=== PATIENT | female | born 1995 | race Caucasian/White ===

== ENCOUNTER 2025-09-23 14:46 | Emergency (ER) | payer OTHER, SELFPAY ==
[2025-09-23 15:12] VITALS: BP 121/73; PULSE 125; RESP 16; TEMP 37.2; O2SAT 98
--- NOTE | 2025-09-23 15:27 | ED_ITS ---
HPI - Nausea/Vomiting/Diarrhea General Chief complaint: Nausea/Vomiting/Diarrhea Stated complaint: Flu Symptoms patient presents to the [facility] with complaints of nausea, vomiting, diarrhea, fever, chills, body aches that began yesterday. Significantly worse today patient reports she feels he hydrated and dry would like IV fluids and IV Zofran. Patient does report she is currently about 4 weeks and has had some significant nausea vomiting on occasion with this and is trying not to take Zofran. Some improvement with symptoms taken Zofran yesterday. Denies abdominal pain, vaginal bleeding. Related Data Allergies Allergy/AdvReac Type Severity Reaction Status Date / Time No Known Allergies Allergy Verified 09/23/25 15:11 Review of Systems Constitutional: Constitutional: Reports as per HPI, Reports chills, Reports fatigue, Reports fever(s) and Reports weakness Eyes: Eyes: Reports no additional eye complaints ENT: Reports as per HPI, Denies vertigo, Denies dizziness, Denies nasal congestion and Denies sore throat Cardiovascular: Cardiovascular: Reports no additional cardiovascular complaints Respiratory: Respiratory: Reports as per HPI, Denies chest congestion, Denies cough, Denies dyspnea and Denies wheezing Gastrointestinal: Gastrointestinal: Reports as per HPI, Denies abdominal pain, Denies bloating, Denies constipation, Denies heartburn, Reports diarrhea, Reports nausea and Reports vomiting Genitourinary: Genitourinary: Reports as per HPI, Denies abnormal vaginal bleeding, Denies hematuria, Denies nocturia, Denies genital lesions, Denies dysuria, Denies pelvic pain, Denies flank pain, Denies urinary incontinence and Denies vaginal discharge Musculoskeletal: Musculoskeletal: Reports as per HPI, Denies back pain and Denies myalgias Integumentary/Breasts: Skin/Breast: Reports as per HPI, Denies erythema, Denies rash and Denies skin ulcer Neurologic: Reports as per HPI, Denies vertigo, Denies dizziness and Reports weakness Psychiatric: Psychiatric: Reports no additional psychiatric complaints Endocrine: Endocrine: Reports no additional endocrine complaints Hematologic/Lymphatic: Hematologic/Lymphatic: Reports no additional hematologic/lymphatic complaints Allergic/Immunologic: Allergic/Immunologic: Reports no additional allergic/immunologic complaints Exam Const: General: no acute distress and ill appearing Nutritional Appearance: well nourished Orientation/consciousness: patient oriented x3 Limitations: no limitations Resp: Effort & Inspection: normal respiratory effort Auscultation: clear to auscultation bilaterally Cardio: Rate: tachycardic Rhythm: regular rhythm GI: Inspection: non-distended GI Palp: Yes Soft to palpation, No Tenderness to palpation present (GI), No Guarding due to palpation present (GI) and No Rigid due to palpation : General: Yes bladder normal to palpation and Yes no CVA tenderness Skin: General skin exam: pallor Rashes: no rashes Wounds: no wounds Neuro: General: patient oriented x3 Speech: normal speech Gait exam (Neuro): Normal gait present Psych: Mental Status: mental status grossly normal Affect: normal affect Attitude: cooperative Course Course Level of Care: Express Care Visit Vital Signs Vital signs: Vital Signs Temperature 99 F 09/23/25 15:12 Pulse Rate 125 H 09/23/25 15:12 Respiratory Rate 16 09/23/25 15:12 Blood Pressure 121/73 09/23/25 15:12 Pulse Oximetry 98 09/23/25 15:12 Temperature 99 F 09/23/25 15:12 Pulse Rate 125 H 09/23/25 15:12 Respiratory Rate 16 09/23/25 15:12 Blood Pressure 121/73 09/23/25 15:12 Pulse Oximetry 98 09/23/25 15:12 [facility] Narrative Medical decision making narrative: Patient negative for influenza a and COVID. Given patient's symptoms and elevated heart rate recommended patient be evaluated in the emergency room with labs and potential for IV fluids and IV medications due to symptoms. Patient will go to [facility]. report given to Cherelle Roldan at [facility]. Differential Diagnosis Differential Diagnosis: Gastroenteritis, abdominal pain, pyelonephritis, urinary tract infect Medical Records I have reviewed the following patient records and this information was taken into consideration when formulating the assessment and plan.: previous labs, previous ER visits, previous hospitalizations and previous clinic visits Lab Data [facility] Lab Attestation statement: I personally reviewed the patient's lab results. Labs: Lab Results 09/23/25 Range/Units 15:31 POC Influenza A Ag Negative (Negative) POC Influenza B Ag Negative (Negative) POC SARS CoV-2 Ag Negative (Negative) Discharge Plan Discharge Clinical Impression: Vomiting and diarrhea Patient Disposition: Acute Care Hospital Condition: Guarded Prognosis Patient Language: Nepalese Follow-up/Referrals: PHYSICIAN,TENT FINISHER [Primary Care Provider, Internal Medicine] Time of Disposition: 15:38
[2025-09-23 15:33] LABS: EDCOVIDSCREEN Negative (Negative); EDINFLUASCREEN Negative (Negative); EDINFLUBSCREEN Negative (Negative)
== END 2025-09-23 15:40 | disposition short-term general hospital (02) ==
PROVIDERS: Emergency Provider Nurse Practitioner Family
DX: O21.9 Vomiting of pregnancy, unspecified (principal); O99.611 Diseases of the digestive system complicating pregnancy, first trimester; R19.7 Diarrhea, unspecified; Z3A.01 Less than 8 weeks gestation of pregnancy; Z20.822 Contact with and (suspected) exposure to COVID-19
CPT/HCPCS: 87426; 87804; 99202; G0463

== ENCOUNTER 2025-09-23 15:53 | Emergency (ER) | payer OTHER, SELFPAY ==
--- OUTSIDE RECORDS SUMMARY | 2024-11-06 03:18 | XMS_ITS | Continuity of Care Document ---
Author Organization [facility] Address [address] [place] [address] Phone Care Team Providers Care Synthetic Plasterer Name Role Phone Records, Medical Unavailable Unavailable Allergies, Adverse Reactions, Alerts Substance Reaction Status Criticality No Known Allergies Active No Inform ation Medications Medication Instructions Dosage Effective Dates (start - stop) Status Comments ondansetron [address] 1 tablet by translingual route every [address] on top of the tongue where they will dissolve, then swallow for hyperemesis gravidarum 1 tablet - Active ZOLOFT (unknown strength) take 1 tablet by oral route every day Not Available - Active HYDROXYZINE HCL (unknown strength) Not Available - Active Advance Directives Directive Yes / No Effective Date File Name No Information Encounters Encounter Description Practice Location Reason(s) For Visit Diagnoses Date Provider [facility], [address] [place] [address], [facility], tel:[phone] [facility] No Information Records Medical. [address], [place], [address], [place]. tel:[phone] [facility], [address] [place] [address], [address], [place] tel:[phone] [facility] *ears (chief complaint) Tinnitus, left Reid Grimaldo. [address], [place], [place], [id number], [place]. tel:[phone] [facility], [address] [place] [address], [address], tel:[phone] [facility] Tinnitus, bilateral Maya Grimadlo. [address], [place], [place], [id number]. tel:[phone] [facility], [address] [facility], [place], [address], tel:[phone] [facility] No Information Stanislav Strongnicnicolle. [address], [place], [place], [id number], [place]. tel:[phone] [facility], [address] [facility], [place], [address], [place] tel:[phone] [facility] *New OB (chief complaint) care in first trimesterAnxiety and depressionDepression, unspecifiedNausea/vomit ing in pregnancyIrritable bowel syndrome with constipationEncounter for screening for other disorder Stanislav Walters. [address], [place], [place], [id number], [place]. tel:[phone] [facility], [address] [place] [address], [facility], [place] tel:[phone] [facility] * Rt ft plantar pain (chief complaint) Plantar fasciitis of right footBilateral foot painPain in left footPronation deformity of both feetOther acquired deformities of left footGastrocnemius equinus of left lower extremityBody mass index (BMI) 24.0-24.9, adult Deepti Cid. [address] [place], [id number], . tel:[phone] [facility], [address] [place] [address], [address], [place] tel:[phone] [facility] * claw fingers (chief complaint) ParesthesiasBilateral hand painPain in left handBody mass index (BMI) 24.0-24.9, adult Jase Tan. [address], [place], [place], [id number], . tel:[phone] Family History Family Member Type Diagnosis Age At Onset No Information Payers Payer name Insurance type Covered libertarian ID Authoriza tion(s) [facility] Claims [id number] Social History Type Description Quantity Date Captured Comments Sex Female Smoking Status No Information Chief Complaint And Reason For Visit No Information Plan Of Treatment Date Type Action Status Goal PHQ9/Depr/Suicide Rsk Assess ment. Due on due Goal COVID-19 Vaccine. Due on Oct due Goal FIT. Due on due Goal Tdap. Due on due Goal Hepatitis C screening. Due o n due Goal HPV. Due on due Goal Pap/HPV testing. Due on due Goal Influenza vaccine. Due on due Goal Unhealthy drug use screening . Due on due Goal FIT-DNA. Due on due Goal Colonoscopy. Due on 025 due Goal FOBT. Due on due Goal Diabetes screening. Due on due Goal Td vaccine. Due on 25 due Goal COVID-19 Vaccine. Due on Jun due Goal Td vaccine. Due on 24 due Goal Diabetes screening. Due on due Goal Tdap. Due on due Goal FIT. Due on due Goal HPV. Due on due Goal FIT-DNA. Due on due Goal Hepatitis C screening. Due o n due Goal Unhealthy drug use screening . Due on due Goal FOBT. Due on due Goal PHQ9/Depr/Suicide Rsk Assess ment. Due on due Goal Pap/HPV testing. Due on due Goal Colonoscopy. Due on due Goal Influenza vaccine. Due on due Goal PHQ9/Depr/Suicide Rsk Assess ment. Due on due Goal HPV. Due on due Goal FOBT. Due on due Goal Influenza vaccine. Due on due Goal Pap/HPV testing. Due on due Goal Unhealthy drug use screening . Due on due Goal Td vaccine. Due on due Goal COVID-19 Vaccine. Due on Jun due Goal Hepatitis C screening. Due o n due Goal Diabetes screening. Due on S due Goal Colonoscopy. Due on due Goal FIT. Due on due Goal FIT-DNA. Due on due Goal Tdap. Due on due Goal Unhealthy drug use screening . Due on due Goal Colonoscopy. Due on due Goal Tdap. Due on due Goal HPV. Due on due Goal Influenza vaccine. Due on due Goal FIT-DNA. Due on due Goal FIT. Due on due Goal Td vaccine. Due on due Goal FOBT. Due on due Goal Pap/HPV testing. Due on due Goal COVID-19 Vaccine. Due on May due Goal Diabetes screening. Due on A due Goal Hepatitis C screening. Due o n due Goal Diabetes screening. Due on A due Goal Tdap. Due on due Goal FOBT. Due on due Goal HPV. Due on due Goal Influenza vaccine. Due on due Goal Unhealthy drug use screening . Due on due Goal Td vaccine. Due on due Goal FIT-DNA. Due on due Goal Pap/HPV testing. Due on due Goal Hepatitis C screening. Due o n due Goal FIT. Due on due Goal COVID-19 Vaccine. Due on May due Goal Colonoscopy. Due on 024 due History Of Present Illness Encounter Date Complaint History Of Prese nt Illness *ears 29yo here for ev aluation of tinnitus. Audiogram done at [facility] today. Tinnitus present for 6-7 months. During the day both ears, worse on left side at night. Left ear pain for the pat 3 days. No ear drainage. No history of loud noise exposure, [place]. No history of ear infections. T&A in 1998. mk Paroxysmal tinnitus in the past. Now it seems like the left side rings every night. Family history is positive for getting hearing aids earlier than is normal. *New OB Patient is here for a new OB appointment. She is around 6 weeks and went to the [facility] ER 06/02 for stomach pain. 28yo at 6.4wga by LMP of 04/24 MIREILLE 5/1LMP: 04/24# of weeks: 6.4 weeksThis si her first pregnancyHPI: ER visit: Intense lower L abdominal pain, went in and a ovarian cyst was found. Left side cramping still present, Tylenol has been used to manage, passed out this morning. Developed elevated heart rate, monitoring by [facility]. PMH: Anxiety + Depression, treated medically. IBSExam: Transvaginal US: Measures 6.6, FHR: ?? MIREILLE: 5/1Meds: 50mg Zoloft, stopped Wellbutrin and linzess day found out she was . vitamins. * Rt ft plantar pain B/L plantar fascitis right is worse than left and it has been about 2 months or so just gets bad when active on feet which her job requires her to be on her feet she is here for evaluation and treatment. She has tried the RICE method no relief not with ibuprofen as well * claw fingers See attached EMG /NCS BUE data and report in EHR Categories/Procedures/Neurologic. Instructions Date Instruction Additional Infor agustín Behavioral managemen t strategies. Recommend diversion techniques as well. Ear protection for loud sounds. Consider pharmacotherapy if it becomes intolerable. F/U change in otologic symptoms. Related to Tinnitus, left Follow-up with Dr. Vásquez. Relat ed to Paresthesias Assessments Type Assessment Date No Information
--- OUTSIDE RECORDS SUMMARY | 2025-09-23 15:55 | XMS_ITS | Clinical Summary ---
Author Organization [facility] Address [address] [place] [address] Care Team Providers Care Manager Sales And Marketing Name Role Phone Divya Vaughan Melo DO Primary Care Provider [phone] Allergies No known active allergies Medications sertraline (ZOLOFT) 100 MG tablet Take 1 tablet (100 mg total) by mouth. 07/23/20 24 Active FEROSUL 325 (65 Fe) MG tablet 11/18/19 25 Active esomeprazole (NEXIUM) 40 MG capsule Take 1 capsule (40 mg total) by mouth every 12 (twelve) hours. 12/31/19 25 Active WELLBUTRIN XL 150 MG 24 hr tablet Take 1 tablet (150 mg total) by mouth. 10/31/19 25 Active Cqglxstz-Vtk-Fe-FA ( 1 + IRON OR) Active oxyCODONE immediate release (ROXICODONE) 5 MG immediate release tabletIndications: Acute Pain < 7 Day Supply Take 1 tablet (5 mg total) by mouth every 4 (four) hours as needed. Indications: Acute Pain < 7 Day Supply 20 tablet 01/19/20 25 Active Additional Information Patient not taking.Reported on 08/13/2025 docusate sodium (COLACE) 100 MG capsule Take 1 capsule (100 mg total) by mouth 2 (two) times daily. 03/25/20 25 Active ondansetron (ZOFRAN-ODT) 4 MG disintegrating tablet 03/25/20 25 Active linaCLOtide (LINZESS) 72 MCG capsuleIndications :Irritable bowel syndrome with constipation Take 1 capsule (72 mcg total) by mouth every morning before breakfast. 30 capsule 2 08/13/20 25 Active Active Problems Problem Noted Date Diagnosed Date section wound complication 01/18/2025 Tachycardia 01/12/2025 Anxiety 01/12/2025 Body dysmorphic disorder 01/12/2025 Irritable bowel syndrome 01/12/2025 Seasonal allergic rhinitis 01/12/2025 Diastasis recti 11/07/2024 Constipation, unspecified constipation type 11/30 Herpes simplex type 1 infection 11/07/2016 Resolved Problems Problem Noted Date Diagnosed Date Resolved Date Rupture of membranes with delay of delivery 01/15/2025 01/18/2025 37 weeks gestation of 01/12/2025 01/18/2025 Hyperemesis gravidarum 01/12/202501/18 01/12/2025 01/18/2025 related hip pain, antepartum, third trimester 11/06/2024 01/18/2025 Lower abdominal pain 12/18/2018 025 Encounters Date Type Department Care Team Description 09/15/2025 MyChart Message Enc [facility] Family & Internal Medicine [address] [phone] Divya Vaughan, Gi 09/15/2025 Telephone [facility] [address] [phone] Divya Vaughan, DO Referral 09/15/2025 Telephone [facility] - [address], [address] [place] [address] Steven Contreras PA-C Returned Call 08/13/2025 8:40 AM MANAGER MONITORING Office Visit [facility] [address] [phone] Divya Vaughan, DO New Patient (Pt has history of IBS and is wanting to get back on IBS relgm walker she is currently and was wondering if it would be safe ) 08/13/2025 Telephone [facility] Family [facility] Internal Medicine [address] [place] [phone] Divya Vaughan, Prior Authorization ([facility]) 08/13/2025 Travel from Last 3 Months Immunizations Immunization Administration Dates Next Due Tdap (Historical Only-select from magnify glass) 02/27/2019 Family History Medical History Relation Comments Colon Cancer Father stage 4 Breast Cancer Paternal Aunt Relation Status Comments Father Paternal Aunt Social History Tobacco Use Types Packs/Day Years Used Date Smoking Tobacco: Never Smokeless Tobacco: Never Tobacco Cessation:Counseling Given: No Alcohol Use Standard Drinks/Week Comments Not Currently 0 (1 standard drink = 0.6 oz pur e alcohol) B1300 Health Literacy Answer Date Recor ded How often do you need to hav e someone help you when you read instructions, pamphlets, or other written material from your doctor or pharmacy? Never 01/15/2025 [facility] Utilities Answer Date Recorded In the past 12 months has e Sapiens, oil, or water [employer] threatened to shut off services in your home? No 01/15/2025 Humiliation, Afraid, Rape, and Kick questionnair e Answer Date Recorded Within the last year, have y ou been afraid of your partner or ex-partner? No 01/15/2025 Within the last year, have y ou been humiliated or emotionally abused in other ways by your partner or ex-partner? No Within the last year, have y ou been kicked, hit, slapped, or otherwise physically hurt by your partner or ex-partner? No 01/15/2025 Within the last year, have y ou been raped or forced to have any kind of sexual activity by your partner or ex-partner? No 01/15/2025 Social Connection and Isolation Panel Answer Date Recorded In a typical week, how many times do you talk on the phone with family, friends, or neighbors? More than three times a week 01/15/2025 How often do you get togethe r with friends or relatives? More than three times a week 01/15/2025 How often do you attend [facility] or gnosticist services? More than 4 times per year 01/15/2025 Do you belong to any clubs o r organizations such as taoism groups, unions, fraternal or athletic groups, or school groups? No 01/15/2025 How often do you attend meet ings of the clubs or organizations you belong to? Never 01/15/2025 Are you , , di vorced, , never , or living with a partner? 01/15/2025 AUDIT-C Answer Date Recorded Q1: How often do you have a drink containing alcohol? Never 01/15/2025 Q2: How many drinks containi ng alcohol do you have on a typical day when you are drinking? Patient does not drink Q3: How often do you have si x or more drinks on one occasion? Never 01/15/2025 Overall Financial Resource Strain (CARDIA) Answe r Date Recorded How hard is it for you to pa y for the very basics like food, housing, medical care, and heating? Not hard at all 01/15/2025 PHQ-2 Answer Date Recorded Patient Health Questionnaire-2 Score 0 01/15/2025 [facility] - Occupational Stress Questionnaire Answer Date Recorded Do you feel stress - tense, restless, nervous, or anxious, or unable to sleep at night because your mind is troubled all the time - these days? Not at all 01/15/2025 Exercise Vital Sign Answer Date Recorde d On average, how many days pe r week do you engage in moderate to strenuous exercise (like a brisk walk)? 3 days 01/15/2025 On average, how many minutes do you engage in exercise at this level? 30 min 01/15/2025 Hunger Vital Sign Answer Date Recorded Within the past 12 months, y ou worried that your food would run out before you got the money to buy more. Never true 01/16/20 25 Within the past 12 months, t he food you bought just didn't last and you didn't have money to get more. Never true 01/15/2025 PRAPARE - Transportation Answer Date Re corded In the past 12 months, has l ack of transportation kept you from medical appointments or from getting medications? No 12/30 In the past 12 months, has l ack of transportation kept you from meetings, work, or from getting things needed for daily living? No 01/15/2025 Housing Stability Vital Sign Answer Ken e Recorded In the last 12 months, was t here a time when you were not able to pay the mortgage or rent on time? No 01/15/2025 In the past 12 months, how m any times have you moved where you were living? 1 01/15/2025 At any time in the past 12 [facility], were you homeless or living in a correction (including now)? No 01/15/2025 Depression Answer Date Recor ded Last EPDS Total Score 2 01/18/2025 Last EPDS Self Harm Result Sometimes 01/18 Comments No Sex and Gender Information Value Date Recorded Sex Assigned at Female 01/15/2025 5:38 AM CDT Legal Sex Female 9:35 PM MANAGER MONITORING Gender Identity Female 01/15/2025 5:38 AM CDT Sexual Orientation Straight 01/15/2025 5: 38 AM CDT Last Filed Vital Signs Vital Sign Reading Time Taken Comments Blood Pressure 94/86 08/13/2025 8:48 AM MANAGER MONITORING Pulse 81 08/13/2025 8:48 AM MANAGER MONITORING Temperature 37 C (98.6 F) 08/13/2025 8:48 AM MANAGER MONITORING Respiratory Rate 16 08/13/2025 8:48 AM MANAGER MONITORING Oxygen Saturation 98% 08/13/2025 8:48 AM MANAGER MONITORING Inhaled Oxygen Concentration - - Weight 59.9 kg (132 lb) 08/13/2025 8:48 AM MANAGER MONITORING Height 157.5 cm (5' 2) 08/13/2025 8:48 AM MANAGER MONITORING Body Mass Index 24.14 08/13/2025 8:48 AM MANAGER MONITORING Plan of Treatment Health Maintenance Due Date Last Done Comments HPV Vaccines (2 - 2-dose series) 10/01/2008 03/31/2008 Cervical Cancer Screening Pap Smear (Age 30 to 64) Every 3 Years 11/14/2022 11/14/2019, 07/30/2017 Cervical Cancer Screening Pap with HPV Testing (Age 30 to 64) Every 5 Years 2023 Cervical Cancer Screening with HPV 2023 COVID-19 Vaccine ( season) 2025 12/12/2021, 10/08/2020, 09/21/2020 Influenza Adult (#1) 2025 07/12/2022, 01/13/2022, 07/12/2015, Additional history exists Annual Physical 08/13/2026 08/13/2025 DTaP, Tdap and Td Vaccines (7 - Td or Tdap) 01/14/2032 01/13/2022, 02/27/2019, 03/31/2008, Additional history exists Hepatitis B Vaccines Completed 06/09/2019, 04/06/1995, 11/24/1994, Additional history exists Meningococcal Vaccine Aged Out 01/13/2022 No chrsi minerva eligible based on patient's age to complete this topic Hepatitis A Vaccines Aged Out 09/06/2022, 01/14/20 22 No longer eligible based on patient's age to complete this topic Hepatitis C Completed 07/07/2024 PHQ-2 (Physician [place]) Completed 01/15/2025 Meningococcal B Vaccine Aged Out No l onger eligible based on patient's age to complete this topic Pneumococcal Vaccine: Pediatrics (0 to 5 Years) and At-Risk Patients (6 to 49 Years) Aged Out No longer eligible based on patient's age to complete this topic RSV Immunizations Under 20 Months Aged Out No longer eligible based on patient's age to complete this topic Procedures Procedure Name Priority Date/Time Associated Diagnosis Comments HEPATITIS C ANTIBODY Routine 07/07/2024 OUTSIDE CYTOPATH CERV/VAG INTERPRET (PAP) (SCAN ORDER) Routine 07/30/2017 12:00 AM CDT from Last 3 Months or Most Recently Relevant to Health Maintenance Results * HEPATITIS C ANTIBODY (07/07/2024) HEPATITIS C AB Non-Reacti ve us Default History Genericprovider LABORATORY Final Result * PAP SMEAR (07/30/2017 12:00 AM CDT) 07/30/2017 us Documents Scanned SCANNING Final Result [facility] from Last 3 Months or Most Recently Relevant to Health Maintenance Insurance Advance Directives * Full Code (Latest Code Status on File) Date Activated Date Inactivated Comments 01/16/2025 3:00 PM 01/18/2025 2:30 PM * Full Code Date Activated Date Inactivated Comments 01/15/2025 5:16 AM 01/16/2025 3:00 PM Care Teams Manager Sales And Marketing Relationship Specialty Start Date End Date Divya Vaughan DO [address] [place] [id number] PCP - General FAMILY PRACTICE 08/13/25
--- OUTSIDE RECORDS SUMMARY | 2025-09-23 15:55 | XMS_ITS | Data Portability ---
Author Organization [facility], [facility] Address [address] [place] [address] Assessment Encounter Date Assessment Date Assessment LastModified by Organization Details LastModified Time 04/21/2025 04/21/2025 Total time spent caring for the patient today was 60 minutes. This includes time spent before the visit reviewing the chart, time spent during the visit, and time spent after the visit on documentation and prescribing medication. Clinical Impression: onset of recurrent Major Depressive Disorder (MDD) and Generalized Anxiety Disorder (ALLIE) with mood instability, chronic anxiety, nightmares, and resurfaced self-harm urges. Current symptoms are moderately impairing and worsened by psychosocial stressors (adjustment to motherhood, limited privacy, transition). Diagnoses: - Major Depressive Disorder, Recurrent, Moderate, with peripartum onset -Generalized Anxiety Disorder The patient consented to the following treatment plan: Not available 04/21/2025 13:56:06 05/19/2025 05/19/2025 MDM: 1 or more chronic illnesses with exacerbation, progression, or treatment side effects. Prescription drug management. Clinical Impression: Yue is currently experiencing partial improvement in depressive and mood instability symptoms. Her recent psychosocial stressor h er father s cancer diagnosis h as contributed to situational stress and sadness but has not precipitated acute mood decompensation. She demonstrates good insight, adherence to her current medication regimen (Wellbutrin and Zoloft), and stability in sleep, appetite, energy, and social functioning. No suicidal or homicidal ideation is reported. Lamictal initiation is deferred at this time. Psychosocial support is being enhanced through couples counseling, with individual therapy planned when feasible. There have been no indications of elevated suicide risk or self-harming behaviors since the previous evaluation. The patient consented to the following treatment plan: Not available 05/19/2025 12:54:13 Plan of Treatment Reminders Order Date Submit Date Provider Last Modified By Organization Details Last Modified Time Details Appointments TELEMED CAPACITY ANALYST EST 2024 04:15P M RAQUEL Gil Not available Not available Not available CAPACITY ANALYST SONO 15 2025 02:00P M [facility] [place] Not available Not available Not available CAPACITY ANALYST EST 2025 02:30P M Amos Sanz MD Not available Not available Not available Lab CBC w/ auto diff 2024 025 [facility], [address] [facility] [facility], [place], [address], 01/28/2025 04:37:22 urinaly sis, dipstic k 2024 025 dylan [facility], [address] [place], [address], 01/06/2025 17:59:10 Referral clinica l therapi st referra l 2024 025 [email or web address] [facility], [address] [facility], [place], [address], 06/19/2025 12:31:47 Procedures None recorde d. Surgeries None recorde d. Imaging None recorde d. Medication Orders lamotri gine 25 mg tablet 2024 025 [email or web address] [id number], [address] [facility], [place], [place], [id number], 04/21/2025 14:06:50 Patient TargetsNo targets recorded. Patient Instructions Encounter Date Encounter Id Patient Instructions Last Modified By Organization Details Last Modified Time 02/25/2025 [id number] depression after childbirth: care instructions dylan Not available 03/02/2025 22:03:37 Care at Home With Your Baby: Care Instructions [email or web address] Not available 03/02/2025 22:03:37 control after counseling dylan Not available 03/02/2025 22:03:37 04/21/2025 [id number] ALLIE-7 anxiety scale* Not available 05/13/2025 10:59:39 Patient Health Questionnaire-9* Not available 05/13/2025 10:59:40 Safety: -The patient denies SI, SIB, psychosis, and cortney -Denies access to firearms or other lethal means -The patient appears future-oriented and, based on the assessment, does not exhibit signs of significant psychosis, cortney, or depression that would warrant a higher level of care at this time. -The patient was advised to seek emergency services if experiencing any thoughts of self-harm, harm to others, or a medical emergency. Follow-up: -Start Lamotrigine 25 mg daily, reassess in 2 weeks- may increase to 50 mg at that time -Monitor for side effects (pool. rash); titrate per schedule -Referral to local therapist ([facility] ra[facility] if possible) -Schedule a follow-up appointment in 3 weeks to evaluate for medication effectiveness Not available 04/21/2025 14:19:20 Lamotrigine -Lamotrigine passes into breast milk in low amounts, and most infants have no side effects. Rare cases of breathing issues and anemia have been reported. -Watch for rash, sleepiness, poor sucking, or breathing problems, and contact a provider if symptoms appear. -Advised of the risk of possibly fatal rash (i.e., Pham-David Syndrome) and agrees to stop medication, and seek medical attention immediately if any rash or rash or blistering of the mucosal surfaces develop, given the potential for lethality and requirement for evaluation by a physician to rule this out. -Further advised that the risk of this reaction increases if proper dose titration is not adhered to carefully and that not taking this medication for 2 days or more will require a retitration process. Side effects include: - Feeling dizzy, sleepy, tired, or weak. -Constipation, diarrhea, stomach pain, upset stomach, throwing up, or decreased appetite. -Shakiness. -Trouble sleeping. -Nose or throat irritation. -Weight loss. -Dry mouth. -Back pain. Report any side effects that do not go away or are bothersome Do not stop taking this drug all of a sudden. You may have a greater risk of side effects Not available 04/21/2025 14:06:23 05/19/2025 [id number] Safety: -The patient denies SI, SIB, psychosis, and cortney -Denies access to firearms or other lethal means -The patient appears future-oriented and, based on the assessment, does not exhibit signs of significant psychosis, cortney, or depression that would warrant a higher level of care at this time. -The patient was advised to seek emergency services if experiencing any thoughts of self-harm, harm to others, or a medical emergency. Follow up -in 1 month (June 16, 2025) via Telemed appointment at 11:00 AM Not available 05/19/2025 12:53:05 - Provided resources for online support groups Not available 05/19/2025 14:53:07 Reason for Referral Clinical Therapist Referral for Moderate recurrent major depression Referring Physician: Gayatri Galvez, COMPLAINT INVESTIGATIONS OFFICER, Encounter Date: 04/21/2025 Results Created Date Observation Date Name Description Value Unit Range Abnormal Flag Note LastModifiedBy Organization Detail LastModifiedTime 01/03/20 25 01/05/2025 STREP TOCOC CUS, GROUP B CULTU RE streptococcu s, group B culture SEE NOTE STREP TOCOC CUS, GROUP B CULTU RE Micro Numbe r: [id number] Test Statu s: Final Speci men Sourc e: Vagin al/an orect al Speci men Quali ty: Adequ ate Resul t: No group B Strep tococ cus isola cecelia Note per CDC guide lines optim al recov heriberto is achie mario by swabb ing both the lower vagin a and rectu m (thro ugh the anal sphin cter) . Not Available [employer] [facility] [address] , [place], [address], 01/05/2025 08:42:49 01/07/20 25 01/08/2025 CULTU RE, URINE , ROUTI NE culture, urine, routine SEE NOTE CULTU RE, URINE , ROUTI NE Micro Numbe r: [id number] Test Statu s: Final Speci men Sourc e: Urine Speci men Quali ty: Adequ ate Resul t: No Growt h Not Available [facility] [address] , [place], [address], 01/09/2025 00:26:56 01/07/2001/06/2025 urina lysis , dipst ick Leukocytes Small Not Available [address], [place], [address], 01/06/2025 17:17:16 01/07/2001/06/2025 urina lysis , dipst ick Nitrite negati ve Not Available [address], [place], [address], 01/06/2025 17:17:16 01/07/2001/06/2025 urina lysis , dipst ick Urobilinogen 1 Not Available [address], [place], [address], 01/06/2025 17:17:16 01/07/2001/06/2025 urina lysis , dipst ick Protein Negati ve Not Available [address], [place], [address], 01/06/2025 17:17:16 01/07/20 25 01/06/2025 urina lysis , dipst ick pH 6.0 Not Available [address], [place], [address], 01/06/2025 17:17:16 01/07/2001/06/2025 urina lysis , dipst ick Blood Negati ve Not Available [address], [place], [address], 01/06/2025 17:17:16 01/07/20 25 01/06/2025 urina lysis , dipst ick Specific [place] 1.005 Not Available [facility] [address] [facility], [place], [address], 01/06/2025 17:17:16 01/07/20 25 01/06/2025 urina lysis , dipst ick Ketone Small Not Available [address], [place], [address], 01/06/2025 17:17:16 01/07/20 25 01/06/2025 urina lysis , dipst ick Bilirubin Negati ve Not Available [address], [place], [address], 01/06/2025 17:17:16 01/07/20 25 01/06/2025 urina lysis , dipst ick Glucose Negati ve Not Available [address], [place], [address], 01/06/2025 17:17:16 01/07/20 25 01/06/2025 urina lysis , dipst ick Appearance Clear Not Available [address], [place], [address], 01/06/2025 17:17:16 01/07/20 25 01/06/2025 urina lysis , dipst ick Color Yellow Not Available [address], [place], [address], 01/06/2025 17:17:16 01/17/2001/16/2025 CBC WITH DIFF WBC 23.23 x10'3 /uL 4.5-11 .0 high Not Available [facility] (Lab) [address] [facility], [place], [address], 01/16/2025 20:34:05 01/17/20 25 01/16/2025 CBC WITH DIFF RBC 3.14 x10'6 /uL 4.20-5 .40 low Not Available [facility] (Lab) [address], [place], [address], 01/16/2025 20:34:05 01/17/20 25 01/16/2025 CBC WITH DIFF hemoglobin 8.5 g/dL 12.0-1 6.0 low Not Available [facility] (Lab) [address], [place], [address], 01/16/2025 20:34:05 01/17/20 25 01/16/2025 CBC WITH DIFF hematocrit 26.8 % 38.0-4 8.0 low Not Available [facility] (Lab) [address], [place], [address], 01/16/2025 20:34:05 01/17/20 25 01/16/2025 CBC WITH DIFF MCV 85.4 fL 81.0-9 9.0 Not Available [facility] (Lab) [address], [place], [address], 01/16/2025 20:34:05 01/17/20 25 01/16/2025 CBC WITH DIFF MCH 27.1 pg 27.0-3 1.0 Not Available [facility] (Lab) [address], [place], [address], 01/16/2025 20:34:05 01/17/20 25 01/16/2025 CBC WITH DIFF MCHC 31.7 g/dL 32.0-3 6.0 low Not Available [facility] (Lab) [address], [place], [address], 01/16/2025 20:34:05 01/17/20 25 01/16/2025 CBC WITH DIFF RDW 15.1 % 11.5-1 4.5 high Not Available [facility] (Lab) [place], [address], 01/16/2025 20:34:05 01/17/20 25 01/16/2025 CBC WITH DIFF platelet count 209 x10'3 /uL 130-40 0 Not Available [facility] (Lab) [address], [place], [address], 01/16/2025 20:34:05 01/17/20 25 01/16/2025 CBC WITH DIFF MPV 10.7 fL 9.3-12 .2 Not Available [facility] (Lab) [address], [place], [address], 01/16/2025 20:34:05 01/17/20 25 01/16/2025 CBC WITH DIFF diff type MANUAL DIFFER ENTIAL Not Available [facility] (Lab) [address], [place], [address], 01/16/2025 20:34:05 01/17/20 25 01/16/2025 CBC WITH DIFF seg neutrophils 94 % Not Available [facility] (Lab) [place], [address], 01/16/2025 20:34:05 01/17/20 25 01/16/2025 CBC WITH DIFF lymphocytes 2 % Not Available [facility] (Lab) [place], [address], 01/16/2025 20:34:05 01/17/20 25 01/16/2025 CBC WITH DIFF monocytes 4 % Not Available [facility] (Lab) [place], [address], 01/16/2025 20:34:05 01/17/20 25 01/16/2025 CBC WITH DIFF abs neutrophils 21.84 x10'3 /uL 1.80-7 .70 high Not Available [facility] (Lab) [address], [place], [address], 01/16/2025 20:34:05 01/17/20 25 01/16/2025 CBC WITH DIFF abs lymphocytes 0.46 x10'3 /uL 1.00-4 .80 low Not Available [facility] (Lab) [address] [facility], [place], [address], 01/16/2025 20:34:05 01/17/20 25 01/16/2025 CBC WITH DIFF abs monocytes 0.93 x10'3 /uL 0.24-0 .86 high Not Available [facility] (Lab) [address], [place], [address], 01/16/2025 20:34:05 01/17/20 25 01/16/2025 CBC WITH DIFF RBC morphology SLIDE REVIEW ED Not Available [facility] (Lab) [address], [place], [address], 01/16/2025 20:34:05 01/17/20 25 01/16/2025 CBC WITH DIFF hypochromasi a 1+ Not Available [facility] (Lab) [address], [place], [address], 01/16/2025 20:34:05 01/17/20 25 01/16/2025 CBC WITH DIFF polychromasi a 1+ Not Available [facility] (Lab) [address], [place], [address], 01/16/2025 20:34:05 01/17/20 25 01/16/2025 CBC WITH DIFF platelet estimate ADEQUA TE Not Available [facility] (Lab) [place], [address], 01/16/2025 20:34:05 01/17/20 25 01/16/2025 COMPR EHENS JOHN METAB OLIC PANEL glucose 157 mg/dL 70-[address] [facility] (Lab) [place], [address], 01/16/2025 20:45:10 01/17/20 25 01/16/2025 COMPR EHENS JOHN METAB OLIC PANEL BUN 6 mg/dL 7-18 low Not Available [facility] (Lab) [place], [address], 01/16/2025 20:45:10 01/17/20 25 01/16/2025 COMPR EHENS JOHN METAB OLIC PANEL creatinine 0.90 mg/dL 0.55-1 .02 Not Available [facility] (Lab) [place], [address], 01/16/2025 20:45:10 01/17/20 25 01/16/2025 COMPR EHENS JOHN METAB OLIC PANEL sodium 133 mmol/ L 136-14 5 low Not Available [facility] (Lab) [place], [address], 01/16/2025 20:45:10 01/17/20 25 01/16/2025 COMPR EHENS JOHN METAB OLIC PANEL potassium 4.0 mmol/ L 3.5-5. 1 Not Available [facility] (Lab) [place], [address], 01/16/2025 20:45:10 01/17/20 25 01/16/2025 COMPR EHENS JOHN METAB OLIC PANEL chloride 105 mmol/ L 97-115 Not Available [facility] (Lab) [place], [address], 01/16/2025 20:45:10 01/17/20 25 01/16/2025 COMPR EHENS JOHN METAB OLIC PANEL total CO2 18.2 mmol/ L 21-32 low Not Available [facility] (Lab) [place], [address], 01/16/2025 20:45:10 01/17/20 25 01/16/2025 COMPR EHENS JOHN METAB OLIC PANEL calcium 7.8 mg/dL 8.5-10 .1 low Not Available [facility] (Lab) [place], [address], 01/16/2025 20:45:10 01/17/20 25 01/16/2025 COMPR EHENS JOHN METAB OLIC PANEL total bilirubin 0.3 mg/dL 0.2-1. 2 THIS ASSAY IS NOT RECOM CARINE D FOR PATIE NTS UNDER GOING TREAT MENT WITH ELTRO MBOPA G DUE TO THE POTEN TIAL FOR FALSE LY ELEVA CECELIA RESUL TS. Not Available [facility] (Lab) [place], [address], 01/16/2025 20:45:10 01/17/20 25 01/16/2025 COMPR EHENS JOHN METAB OLIC PANEL total protein 5.8 g/dL 6.4-8. 2 low Not Available [facility] (Lab) [place], [address], 01/16/2025 20:45:10 01/17/20 25 01/16/2025 COMPR EHENS JOHN METAB OLIC PANEL albumin 2.0 g/dL 3.4-5. 0 low Not Available [facility] (Lab) [place], [address], 01/16/2025 20:45:10 01/17/20 25 01/16/2025 COMPR EHENS JOHN METAB OLIC PANEL AST 21 U/L 15-37 Not Available [facility] (Lab) [place], [address], 01/16/2025 20:45:10 01/17/20 25 01/16/2025 COMPR EHENS JOHN METAB OLIC PANEL ALT 14 U/L 14-55 Not Available [facility] (Lab) [place], [address], 01/16/2025 20:45:10 01/17/20 25 01/16/2025 COMPR EHENS JOHN METAB OLIC PANEL alk phosphatase 223 U/L 50-136 high Not Available [facility] (Lab) [place], [address], 01/16/2025 20:45:10 01/17/20 25 01/16/2025 COMPR EHENS JOHN METAB OLIC PANEL anion gap 9.8 mmol/ L 2-10 Not Available [facility] (Lab) [place], [address], 01/16/2025 20:45:10 01/17/20 25 01/16/2025 COMPR EHENS JOHN METAB OLIC PANEL BUN creatinine ratio 6.7 6-26 Not Available [facility] (Lab) [place], [address], 01/16/2025 20:45:10 01/17/20 25 01/16/2025 COMPR EHENS JOHN METAB OLIC PANEL A:g ratio 0.5 ratio 1.0-2. 0 low Not Available [facility] (Lab) [place], [address], 01/16/2025 20:45:10 01/17/20 25 01/16/2025 COMPR EHENS JOHN METAB OLIC PANEL est GFR 88 mL/mi n/1.7 3_M2 >90 low NOTE: eGFR is not calcu lated for patie nts <18 years of age or gende r unkno wn. This is an estim ated GFR calcu latio n using the new CKD EPI creat inine equat ion witho ut race and so does not requi re a corre ction facto r for race. This estim ated GFR shoul d not be used for calcu latin g drug doses . Not Available [facility] (Lab) [place], [address], 01/16/2025 20:45:10 01/17/20 25 01/16/2025 TSH ULTRA SEN RFLX TSH ultrasen rflx 1.580 uIU/m L 0.358- 3.74 HIGH DOSES OF BIOTI N MAY INTER FERE WITH THIS TEST RESUL T. CORRE LATIO N TO CLINI TRU HISTO RY AND PRESE NTATI ON RECOM CARINE D. FREE T4 NOT INDIC ATED Not Available [facility] (Lab) [place], [address], 01/16/2025 20:45:12 01/17/20 25 01/16/2025 CREAT ININE , URINE creatinine, urine 49.0 mg/dL 28-217 Not Available [facility] (Lab) [place], [address], 01/16/2025 20:48:13 01/17/20 25 01/16/2025 TOTAL PROTE IN, URINE total protein, urine 14.1 mg/dL <10 high Not Available [facility] (Lab) [address] [facility] [place], [address], 01/16/2025 20:48:15 01/17/20 25 01/20/2025 SJS SURGI TRU PATHO LOGY path report [facility] Medic ine [address] [facility] [address] [address] Telep deana: , exten kelvin [id number] Patho logy Repor t Surgi tru Patho logy Repor t Name: PREET DS, MARYLOU RY SHARMIN Speci men #: [id number] Age: [birth year]9/11 (Age: 29) Locat ion: [facility] IF Sex: F Proce dure Date: 2024 Hospi gerri #: [id number] Date Recei mario: 2024 Date Repor cecelia: 2024 Provi woody: LUIS ANGEL Gautam MD [facility] e: Place nta Clini tru Histo ry: 38 weeks 1 day gesta tion, G1, P1. Sami jani deliv heriberto of male infan t. Prolo nged ruptu re of membr anes with delay of deliv heriberto. 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 The attac hed membr anes are large ly separ ated and disru pted. The membr anes may be incom plete . The membr anes are glist ening , semit ransl ucent , montesinos, and inser t in a janelle nal fashi on. The membr ane site of ruptu re canno t be deter mined . The amnio tic membr anes are compl etely bre d back to the site of umbil ical cord inser tion. The 24.5 cm tortu ous, triva scula r umbil ical cord inser ts 6.0 cm from the neare st place ntal janelle n and avera ges 1.[address] The place ntal disc weigh s 612 g. The surfa ce is glist ening , montesinos-r ed, and appea rs fairl y well- vascu lariz ed. Some of the vesse ls are marke dly thinn ed. The mater nal surfa ce is compo sed of disru pted, spong y montesinos-r ed cotyl edons . The compl etene ss of this surfa ce canno t be deter mined . Secti oning revea ls no discr ete intra paren chyma l lesio ns or raza s. Secti ons are submi tted as follo ws: 1 - membr anes 2 - umbil ical cord 3 - paren chyma Gross exami natio n (when appli cable ) was perfo rmed at [facility], [address] [facility], [place] [address] . This case was inter prete d and lupe d out at [facility], [address] [facility]. , [facility] [address] . Kimberlyn ctron icall y Lupe d Out MARBIN EDWARDS MD Not Available [facility] (Lab) [address] [facility], [place], [address], 01/20/2025 17:52:45 01/18/20 25 01/17/2025 HEMAG ALCIRA WBC 18.11 x10'3 /uL 4.5-11 .0 high Not Available [facility] (Lab) [address] [facility], [place], [address], 01/17/2025 07:54:20 01/18/20 25 01/17/2025 HEMAG ALCIRA RBC 2.72 x10'6 /uL 4.20-5 .40 low Not Available [facility] (Lab) [address], [place], [address], 01/17/2025 07:54:20 01/18/20 25 01/17/2025 HEMAG ALCIRA hemoglobin 7.4 g/dL 12.0-1 6.0 low Not Available [facility] (Lab) [address], [place], [address], 01/17/2025 07:54:20 01/18/20 25 01/17/2025 HEMAG ALCIRA hematocrit 23.5 % 38.0-4 8.0 low Not Available [facility] (Lab) [address], [place], [address], 01/17/2025 07:54:20 01/18/20 25 01/17/2025 HEMAG ALCIRA MCV 86.4 fL 81.0-9 9.0 Not Available [facility] (Lab) [address] [facility], [place], [address], 01/17/2025 07:54:20 01/18/2001/17/2025 HEMAG ALCIRA MCH 27.2 pg 27.0-3 1.0 Not Available [facility] (Lab) [address], [place], [address], 01/17/2025 07:54:20 01/18/2001/17/2025 HEMAG ALCIRA MCHC 31.5 g/dL 32.0-3 6.0 low Not Available [facility] (Lab) [address], [place], [address], 01/17/2025 07:54:20 01/18/20 25 01/17/2025 HEMAG ALCIRA RDW 15.2 % 11.5-1 4.5 high Not Available [facility] (Lab) [address], [place], [address], 01/17/2025 07:54:20 01/18/20 25 01/17/2025 HEMAG ALCIRA platelet count 201 x10'3 /uL 130-40 0 Not Available [facility] (Lab) [address], [place], [address], 01/17/2025 07:54:20 01/18/2001/17/2025 HEMAG ALCIRA MPV 10.2 fL 9.3-12 .2 Not Available [facility] (Lab) [address], [place], [address], 01/17/2025 07:54:20 01/18/20 25 01/17/2025 COMPR EHENS JOHN METAB OLIC PANEL glucose 68 mg/dL 70-99 low Not Available [facility] (Lab) [address], [place], [address], 01/17/2025 08:05:13 01/18/20 25 01/17/2025 COMPR EHENS JOHN METAB OLIC PANEL BUN 8 mg/dL 7-18 Not Available [facility] (Lab) [address], [place], [address], 01/17/2025 08:05:13 01/18/2001/17/2025 COMPR EHENS JOHN METAB OLIC PANEL creatinine 0.83 mg/dL 0.55-1 .02 Not Available [facility] (Lab) [address], [place], [address], 01/17/2025 08:05:13 01/18/20 01/17/2025 COMPR EHENS JOHN METAB OLIC PANEL sodium 137 mmol/ L 136-14 5 Not Available [facility] (Lab) [place], [address], 01/17/2025 08:05:13 01/18/20 25 01/17/2025 COMPR EHENS JOHN METAB OLIC PANEL potassium 4.1 mmol/ L 3.5-5. 1 Not Available [facility] (Lab) [place], [address], 01/17/2025 08:05:13 01/18/20 25 01/17/2025 COMPR EHENS JOHN METAB OLIC PANEL chloride 110 mmol/ L 97-115 Not Available [facility] (Lab) [place], [address], 01/17/2025 08:05:13 01/18/20 25 01/17/2025 COMPR EHENS JOHN METAB OLIC PANEL total CO2 22.1 mmol/ L 21-32 Not Available [facility] (Lab) [place], [address], 01/17/2025 08:05:13 01/18/2001/17/2025 COMPR EHENS JOHN METAB OLIC PANEL calcium 7.4 mg/dL 8.5-10 .1 low Not Available [facility] ([place]) [place], [address], 01/17/2025 08:05:13 01/18/2001/17/2025 COMPR EHENS JOHN METAB OLIC PANEL total bilirubin 0.2 mg/dL 0.2-1. 2 THIS ASSAY IS NOT RECOM CARINE D FOR PATIE NTS UNDER GOING TREAT MENT WITH ELTRO MBOPA G DUE TO THE POTEN TIAL FOR FALSE LY ELEVA CECELIA RESUL TS. Not Available [facility] (Lab) [address] [facility], [place], [address], 01/17/2025 08:05:13 01/18/20 25 01/17/2025 COMPR EHENS JOHN METAB OLIC PANEL total protein 5.4 g/dL 6.4-8. 2 low Not Available [facility] (Lab) [address] [facility], [place], [address], 01/17/2025 08:05:13 01/18/20 25 01/17/2025 COMPR EHENS JOHN METAB OLIC PANEL albumin 1.9 g/dL 3.4-5. 0 low Not Available [facility] (Lab) [address] [facility], [place], [address], 01/17/2025 08:05:13 01/18/20 25 01/17/2025 COMPR EHENS JOHN METAB OLIC PANEL AST 23 U/L 15-37 Not Available [facility] (Lab) [place], [address], 01/17/2025 08:05:13 01/18/20 25 01/17/2025 COMPR EHENS JOHN METAB OLIC PANEL ALT 13 U/L 14-55 low Not Available [facility] (Lab) [place] [place], [address], 01/17/2025 08:05:13 01/18/20 25 01/17/2025 COMPR EHENS JOHN METAB OLIC PANEL alk phosphatase 191 U/L 50-136 high Not Available [facility] (Lab) [address] [facility], [place], [address], 01/17/2025 08:05:13 01/18/20 25 01/17/2025 COMPR EHENS JOHN METAB OLIC PANEL anion gap 4.9 mmol/ L 2-10 Not Available [facility] (Lab) [place], [address], 01/17/2025 08:05:13 01/18/2001/17/2025 COMPR EHENS JOHN METAB OLIC PANEL BUN creatinine ratio 9.6 6-26 Not Available [facility] (Lab) [place], [address], 01/17/2025 08:05:13 01/18/2001/17/2025 COMPR EHENS JOHN METAB OLIC PANEL A:g ratio 0.5 ratio 1.0-2. 0 low Not Available [facility] (Lab) [place], [address], 01/17/2025 08:05:13 01/18/2001/17/2025 COMPR EHENS JOHN METAB OLIC PANEL est GFR >90 mL/mi n/1.7 3_M2 >90 NOTE: eGFR is not calcu lated for patie nts <18 years of age or gende r unkno wn. This is an estim ated GFR calcu latio n using the new CKD EPI creat inine equat ion witho ut race and so does not requi re a corre ction facto r for race. This estim ated GFR shoul d not be used for calcu latin g drug doses . Not Available [facility] (Lab) [address], [place], [address], 01/17/2025 08:05:13 01/28/2001/28/2025 CBC (INCL UDES DIFF/ PLT) white blood cell count 10.6 thous and/u L 3.8-10 .8 normal Not Available [facility] [address], [place], [address], 01/28/2025 04:37:22 01/28/2001/28/2025 CBC (INCL UDES DIFF/ PLT) red blood cell count 3.67 corey on/uL 3.80-5 .10 low Not Available [address], [address], 01/28/2025 04:37:22 01/28/2001/28/2025 CBC (INCL UDES DIFF/ PLT) hemoglobin 10.7 g/dL 11.7-1 5.5 low Not Available [address], [address], 01/28/2025 04:37:22 01/28/2001/28/2025 CBC (INCL UDES DIFF/ PLT) hematocrit 33.1 % 35.0-4 5.0 low Not Available [address], [address], 01/28/2025 04:37:22 01/28/20 25 01/28/2025 CBC (INCL UDES DIFF/ PLT) MCV 90.2 fL 80.0-1 00.0 normal Not Available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
[2025-09-23 16:39] VITALS: BP 122/75; PULSE 125; RESP 17; TEMP 37.4; O2SAT 100
--- NOTE | 2025-09-23 16:54 | PC.NURSE ---
pt spouse approached intake desk to notify this RN she was going to decline to be seen. Pt left w/ spouse in w/c.
== END 2025-09-23 17:54 | disposition left against medical advice (07) ==
LOC: ANHED 17:01
DX: R11.2 Nausea with vomiting, unspecified (principal)
CPT/HCPCS: 99199